=== PATIENT | male | born 1955 | race Caucasian/White ===

== ENCOUNTER → 2018-05-15 | Outpatient (CLI) | payer OTHER ==
[~2018-05-15] MED LIST: CEPHALEXIN500 M1 PO; HCTZ 25MG TAB25 MG PO; LOTENSIN; LOTREL 10 MG-201 CAP PO; NORCO 325 MG-7.1 TAB PO; ZOCOR 20MG20 MG PO
== END ==
LOC: COL.RAD 10:06
DX: M16.11 Unilateral primary osteoarthritis, right hip (principal)
CPT/HCPCS: J3301; Q9967

== ENCOUNTER → 2019-04-01 | Outpatient (CLI) | payer BC | LOC: COL.VAS 12:59 | DX: R60.0 Localized edema (principal) ==

== ENCOUNTER → 2019-06-24 | Outpatient (CLI) | payer BC | LOC: COL.VAS 12:13 | DX: R60.9 Edema, unspecified (principal) ==

== ENCOUNTER 2019-07-04 09:19 | Emergency (ER) | payer BC ==
[~2019-07-04] VITALS: Ht 177.8 cm; Wt 95.5 kg
[2019-07-04 09:24] VITALS: TEMP 97.9
[2019-07-04 10:11] LABS: HEMATOCRIT 49.8 % (42.0-52.0); MEAN CELL VOLUME 87 fl (80.0-100.0); MEAN CORPUSCULAR HEMOGLOBIN 30 pg (27.0-31.0); MEAN CORPUSCULAR HGB CONC 34 g/dl (33.0-37.0); MEAN PLATELET VOLUME 9.2 fl (7.4-10.4); PLATELET COUNT 311 K/mm3 (130-400); RED BLOOD COUNT 5.72 M/mm3 (4.20-5.60); REDCELL DISTRIBUTION WIDTH-CV 12.9 % (11.5-14.5)
[2019-07-04 10:29] LABS: ALBUMIN 4.3 gm/dL (3.5-5.0); BILIRUBIN,TOTAL 0.5 mg/dL (0.0-1.0); CALCIUM 8.9 mg/dL (8.4-10.2); CREATININE, serum 1.26 (0.66-1.25); POTASSIUM 3.1 mmol/L (3.4-5.0); TOTAL PROTEIN 7.9 gm/dL (6.4-8.2)
[2019-07-04 10:36] LABS: BAND 15 % (0-10); BASOPHIL 1 % (0-2); EOSINOPHIL 4 % (0-4); LYMPHOCYTE 18 % (20.0-51.0); NEUTROPHILS 46 % (42.0-75.2); PLATELET ESTIMATE NORMAL (NORMAL)
[2019-07-04 10:37] LABS: BURR CELLS 1+
[2019-07-04 10:41] LABS: C-REACTIVE PROTEIN 3.4 mg/dL (0.0-0.9)
[2019-07-04 11:33] LABS: COLLECTION METHOD CLEAN CATCH
[2019-07-04 11:43] LABS: MUCOUS Present /lpf; PH 5 (5-8); SQUAMOUS EPITHELIAL 0-2 /hpf; URINE APPEARANCE Hazy; URINE BACTERIA None Seen /hpf; URINE BILIRUBIN Negative (NEGATIVE); URINE BLOOD 2+ (NEGATIVE); URINE COLOR Yellow; URINE GLUCOSE Negative (NEGATIVE); URINE KETONE Negative (NEGATIVE); URINE LEUKOCYTE ESTERASE Negative (NEGATIVE); URINE NITRATE Negative (NEGATIVE); URINE PROTEIN(semi-quant) 2+ (NEGATIVE); URINE RBC >50 /hpf; URINE UROBILINOGEN Negative (NEGATIVE)
[2019-07-04] MEDS ORDERED: PROSCAR 5MG5 MG PO (11:48)
[2019-07-04] MEDS ORDERED: PRIL40 PO (11:49)
[2019-07-04] MEDS ORDERED: FLOMAX 0.40.4 MG/CAP PO (11:50)
[2019-07-04] MEDS ORDERED: K-TAB10 PO (11:50)
[2019-07-04] MEDS ORDERED: BUMEX 1MG TA1 MG/TA1 PO (11:51)
[2019-07-04] MEDS ORDERED: FLOVENT 220MCG7.9 GM (11:52)
[2019-07-04 13:35] VITALS: BP 112/80; PULSE 83
== END 2019-07-04 13:35 | disposition home or self-care (01) ==
LOC: COL.ER 09:19
PROVIDERS: Family Medicine
DX: B34.9 Viral infection, unspecified (principal); I10 Essential (primary) hypertension; Z79.51 Long term (current) use of inhaled steroids
CPT/HCPCS: J2405; J7030

== ENCOUNTER → 2020-12-06 | Outpatient (CLI) | payer OTHER ==
[~2020-12-06] MED LIST changes: +BUMEX 1MG TA1 MG/TA1 PO; +FLOMAX 0.40.4 MG/CAP PO; +FLOVENT 220MCG7.9 GM; +K-TAB10 PO; +PRIL40 PO; +PROSCAR 5MG5 MG PO
== END ==
LOC: COL.RAD 12:42
DX: J34.9 Unspecified disorder of nose and nasal sinuses (principal)

== ENCOUNTER → 2022-05-02 | Outpatient (CLI) | payer OTHER | LOC: COL.VAS 14:12 | DX: I35.0 Nonrheumatic aortic (valve) stenosis (principal); I51.7 Cardiomegaly ==